=== PATIENT | female | born 1955 | race Hispanic/Latino ===

== ENCOUNTER 2023-07-10 10:11 | Emergency (ER) | payer OTHER, MEDICARE ==
[~2023-07-10] VITALS: Ht 170.2 cm; Wt 99.8 kg
[~2023-07-10 10:11] MED LIST: ESCI-8 PO; GABA-529 PO; HYDR100T42 PO; LEVO88CA4 PO; MELO-106 PO; METO-391 PO
[2023-07-10] MEDS ORDERED: LACTATED RINGERS 1000ML 1,000 ML IV ONE (11:00)
[2023-07-10] MEDS ORDERED: METOCLOPRAMIDE 10 MG/2 ML VIAL IVP ONE (11:00)
[2023-07-10] MEDS ORDERED: LACTULOSE 20 GM/30 ML UDCUP PO ONE (11:00)
[2023-07-10 11:21] LABS: BASOPHILS # (AUTO) 0.07 K/uL (0.00-0.20); BASOPHILS % (AUTO) 0.6 % (0.0-5.0); EOSINOPHILS # (AUTO) 0.03 K/uL (0.00-0.70); EOSINOPHILS % (AUTO) 0.2 % (0.0-8.0); HEMATOCRIT 39.4 % (36-48); IMMATURE GRANULOCYTE ABSOLUTE 0.06 K/uL (0-1); LYMPHOCYTES # (AUTO) 1.3 K/uL (1.0-4.8); LYMPHOCYTES % (AUTO) 10.3 % (21.0-51.0); MEAN CORPUSCULAR HGB CONC 32.5 g/dL (32.0-36.0); MEAN CORPUSCULAR VOLUME 92.3 fL (79-99); MONOCYTES # (AUTO) 0.5 K/uL (0.1-1.0); MONOCYTES % (AUTO) 4.1 % (3.0-13.0); NEUTROPHILS # (AUTO) 10.5 K/uL (1.8-7.7); NEUTROPHILS % (AUTO) 84.3 % (40.0-77.0); PLATELET COUNT (AUTO) 259 K/uL (130-400); RED BLOOD CELL COUNT(AUTO) 4.27 MIL/uL (4.00-5.50); RED CELL DISTRIBUTION WIDTH 13.3 % (11.0-15.5); WHITE BLOOD COUNT (AUTO) 12.4 K/uL (4.8-10.8)
[2023-07-10 11:38] LABS: ALBUMIN 3.4 g/dL (3.5-5.0); BILIRUBIN,TOTAL 0.6 mg/dL (0.2-1.0); CREATININE 0.8 mg/dL (0.5-1.5); POTASSIUM 3.6 mmol/L (3.5-5.1); TOTAL PROTEIN, SERUM 7.7 g/dL (6.0-8.3)
[2023-07-10] MEDS ORDERED: POLY17PO4 PO (13:05)
[2023-07-10 13:16] VITALS: BP 165/79; PULSE 74; RESP 18; O2SAT 97
== END 2023-07-10 13:21 | disposition home or self-care (01) ==
LOC: EDH 10:11
DX: R10.9 Unspecified abdominal pain (principal); K59.00 Constipation, unspecified; I10 Essential (primary) hypertension; E11.9 Type 2 diabetes mellitus without complications; E03.9 Hypothyroidism, unspecified; Z79.899 Other long term (current) drug therapy; Z98.890 Other specified postprocedural states
CPT/HCPCS: 99285; 96374; 96361; 82550; 84484; 80053; 83690; 85025; 36415; 74021; 93005; J7120; J2765; 96375

== ENCOUNTER 2024-03-09 14:45 | Inpatient (IN) | payer OTHER, MEDICARE ==
[2024-03-09] VITALS (27 sets, daily range): BP systolic 71–141; BP diastolic 27–85; PULSE 55–118; RESP 13–111; TEMP 98.2–98.3; O2SAT 93–96
[~2024-03-09] VITALS: Ht 167.6 cm; Wt 104.3 kg
[~2024-03-09 14:45] MED LIST changes: +POLY17PO4 PO
[2024-03-09] MEDS ORDERED: dilTIAZem 125MG+100 ML NS 125 ML IV PRN (15:00)
[2024-03-09] MEDS: metoPROLOL tartRATE 1 MG/ML 5ML VIAL IV ONE ×2 (15:11→15:13)
[2024-03-09 15:12] LABS: BASOPHILS # (AUTO) 0.05 K/uL (0.00-0.20); BASOPHILS % (AUTO) 0.5 % (0.0-5.0); EOSINOPHILS # (AUTO) 0.01 K/uL (0.00-0.70); EOSINOPHILS % (AUTO) 0.1 % (0.0-8.0); HEMATOCRIT 42.1 % (36-48); IMMATURE GRANULOCYTE ABSOLUTE 0.05 K/uL (0-1); LYMPHOCYTES # (AUTO) 2.3 K/uL (1.0-4.8); LYMPHOCYTES % (AUTO) 20.7 % (21.0-51.0); MEAN CORPUSCULAR HEMOGLOBIN 29.1 pg (27.0-33.0); MEAN CORPUSCULAR HGB CONC 32.5 g/dL (32.0-36.0); MEAN CORPUSCULAR VOLUME 89.4 fL (79-99); MONOCYTES # (AUTO) 0.4 K/uL (0.1-1.0); MONOCYTES % (AUTO) 3.8 % (3.0-13.0); NEUTROPHILS # (AUTO) 8.1 K/uL (1.8-7.7); NEUTROPHILS % (AUTO) 74.4 % (40.0-77.0); PLATELET COUNT (AUTO) 302 K/uL (130-400); RED BLOOD CELL COUNT(AUTO) 4.71 MIL/uL (4.00-5.50); RED CELL DISTRIBUTION WIDTH 13.4 % (11.0-15.5); WHITE BLOOD COUNT (AUTO) 10.9 K/uL (4.8-10.8)
[2024-03-09] MEDS: ENOXAPARIN SODIUM 100 MG/1 ML SQ ONE (15:15)
[2024-03-09 15:21] LABS: CREATININE 0.9 mg/dL (0.5-1.0); MAGNESIUM 2.1 mg/dL (1.80-2.40); POTASSIUM 3.5 mmol/L (3.5-5.1)
[2024-03-09] MEDS: dilTIAZem 25MG INJ IVP ONE (15:21)
[2024-03-09] MEDS: ENOXAPARIN SODIUM 120 MG/0.8ML SQ ONE (15:22)
[2024-03-09 15:24] LABS: INR 1.03 (0.85-1.15); PROTHROMBIN TIME 11.1 SEC (9.6-11.6)
[2024-03-09 15:25] LABS: PARTIAL THROMBOPLASTIN TIME 25.4 SEC (26.3-35.5)
[2024-03-09] MEDS ORDERED: ondanSETRON 4MG INJ IVP PRN (16:00)
[2024-03-09] MEDS ORDERED: acetaMINOPHEN 325 MG TAB PO PRN (16:00)
[2024-03-09] MEDS: metoPROLOL tartRATE 25 MG TAB ONE (16:18)
[2024-03-09] MEDS: metoPROLOL tartRATE 25 MG TAB PO SCH ×2 (16:23)
[2024-03-09 16:36] LABS: ADD UA MICROSCOPIC YES; APPEARANCE,URINE CLEAR (CLEAR); BILIRUBIN,URINE NEGATIVE (NEGATIVE); COLOR,URINE COLORLESS (YELLOW); GLUCOSE, URINE (UA) NEGATIVE (NEGATIVE); KETONES,URINE NEGATIVE (NEGATIVE); LEUKOCYTE ESTERASE ,URINE 75 Leu/uL (NEGATIVE); NITRATE,URINE NEGATIVE (NEGATIVE); OCCULT BLOOD,URINE NEGATIVE (NEGATIVE); PH,URINE 6.5 (5.0-8.0); PROTEIN,URINE NEGATIVE (NEGATIVE); UROBILINOGEN,URINE 0.2 mg/dL (0.2-1.0)
[2024-03-09 16:40] LABS: BACTERIA,URINE RARE /HPF (None Seen); RBC,URINE 0-1 /HPF (0-1)
[2024-03-09] MEDS: dilTIAZem 125MG+100 ML NS 125 ML IV ONE (17:14)
[2024-03-09] MEDS: dilTIAZem 125 MG/25 ML INJ 125 MG in 0.9%NACL 100ML 100 ML IV SCH (17:14)
[2024-03-10] VITALS (38 sets, daily range): BP systolic 96–169; BP diastolic 43–84; PULSE 46–116; RESP 9–84; TEMP 97.7–98.2; O2SAT 93–96
[2024-03-10 03:42] LABS: BASOPHILS # (AUTO) 0.08 K/uL (0.00-0.20); BASOPHILS % (AUTO) 0.8 % (0.0-5.0); EOSINOPHILS # (AUTO) 0.05 K/uL (0.00-0.70); EOSINOPHILS % (AUTO) 0.5 % (0.0-8.0); HEMATOCRIT 41.3 % (36-48); IMMATURE GRANULOCYTE ABSOLUTE 0.03 K/uL (0-1); LYMPHOCYTES # (AUTO) 4.1 K/uL (1.0-4.8); LYMPHOCYTES % (AUTO) 39.7 % (21.0-51.0); MEAN CORPUSCULAR HGB CONC 31.7 g/dL (32.0-36.0); MEAN CORPUSCULAR VOLUME 91.6 fL (79-99); MONOCYTES # (AUTO) 0.6 K/uL (0.1-1.0); MONOCYTES % (AUTO) 5.3 % (3.0-13.0); NEUTROPHILS # (AUTO) 5.5 K/uL (1.8-7.7); NEUTROPHILS % (AUTO) 53.4 % (40.0-77.0); PLATELET COUNT (AUTO) 300 K/uL (130-400); RED BLOOD CELL COUNT(AUTO) 4.51 MIL/uL (4.00-5.50); RED CELL DISTRIBUTION WIDTH 13.6 % (11.0-15.5); WHITE BLOOD COUNT (AUTO) 10.4 K/uL (4.8-10.8)
[2024-03-10 04:09] LABS: ALBUMIN 3.1 g/dL (3.5-5.0); BILIRUBIN,TOTAL 0.4 mg/dL (0.2-1.0); CREATININE 0.9 mg/dL (0.5-1.0); MAGNESIUM 2.3 mg/dL (1.80-2.40); TOTAL PROTEIN, SERUM 7.6 g/dL (6.0-8.3)
[2024-03-10 04:27] LABS: HEMOGLOBIN A1C 5.6 % (4.0-6.0)
[2024-03-10] MEDS: ENOXAPARIN SODIUM 30 MG/0.3 ML SQ SCH (09:01)
[2024-03-10] MEDS ORDERED: METH4TAB15 PO (09:17)
[2024-03-10] MEDS ORDERED: GLUC-172 PO (09:17)
[2024-03-10] MEDS ORDERED: CHOL125C7 PO (09:17)
[2024-03-10] MEDS ORDERED: ESCI20TA38 PO (09:17)
[2024-03-10] MEDS ORDERED: [UNRECOGNIZED DRUG - CODE] PO (09:17)
[2024-03-10] MEDS ORDERED: LEVO100C4 PO (09:17)
[2024-03-10] MEDS ORDERED: MELA1TAB17 PO (09:17)
[2024-03-10] MEDS ORDERED: GABA-529 PO (09:17)
[2024-03-10] MEDS ORDERED: CELE200 PO (09:17)
[2024-03-10] MEDS ORDERED: HYDR100T42 PO (09:17)
[2024-03-10] MEDS ORDERED: ACET-2521 PO (09:17)
[2024-03-10] MEDS: ENOXAPARIN SODIUM 120 MG/0.8ML SQ SCH (18:25)
[2024-03-10] MEDS: PYRIDOXINE HCL PO SCH (21:00)
[2024-03-10] MEDS: HYDROXYCHLOROQUINE SULFATE 100 MG PO SCH (21:00)
[2024-03-10] MEDS: MELATONIN PO SCH (21:00)
[2024-03-10] MEDS: CeleCOXib 200 MG CAP PO SCH (21:01)
[2024-03-11] VITALS (8 sets, daily range): BP systolic 117–142; BP diastolic 50–69; PULSE 50–69; RESP 18; TEMP 98–98.6; O2SAT 95–96
[2024-03-11 04:30] LABS: HEMATOCRIT 39.4 % (36-48); MEAN CORPUSCULAR HEMOGLOBIN 28.9 pg (27.0-33.0); MEAN CORPUSCULAR HGB CONC 31.7 g/dL (32.0-36.0); MEAN CORPUSCULAR VOLUME 91.2 fL (79-99); RED BLOOD CELL COUNT(AUTO) 4.32 MIL/uL (4.00-5.50); RED CELL DISTRIBUTION WIDTH 13.6 % (11.0-15.5); WHITE BLOOD COUNT (AUTO) 8.7 K/uL (4.8-10.8)
[2024-03-11 04:52] LABS: CREATININE 1.1 mg/dL (0.5-1.0); MAGNESIUM 2.2 mg/dL (1.80-2.40); POTASSIUM 3.9 mmol/L (3.5-5.1)
[2024-03-11] MEDS: levoTHYROxine 100 MCG TABLET PO SCH (05:54)
[2024-03-11] MEDS: cefTRIAXone 1G VIAL IVPB SCH (12:39)
[2024-03-11] MEDS: APIXaban 5 MG TABLET PO SCH (12:40)
[2024-03-11] MEDS: GABApentin 100 MG CAPSULE PO SCH (12:40)
[2024-03-11] MEDS: acetaMINOPHEN 325 MG TAB PO SCH (12:40)
[2024-03-11] MEDS: GLUCOSAMINE PO SCH (13:00)
[2024-03-11] MEDS: Escitalopram Oxalate 20 MG PO SCH (13:00)
[2024-03-11] MEDS: D3 PO SCH (13:00)
[2024-03-11] MEDS: BOSWELLIA SERRA PO SCH (13:00)
[2024-03-11] MEDS: CYANOCOBALAMIN 3000 MCG PO SCH (13:00)
[2024-03-11] MEDS: REGADENOSON 0.4 MG/5 ML PF SYG IVP SCH (15:15)
[2024-03-12 01:44] VITALS: BP 148/75; PULSE 76; RESP 18; TEMP 98.4
[2024-03-12 03:55] LABS: HEMATOCRIT 38.5 % (36-48); MEAN CORPUSCULAR HEMOGLOBIN 28.9 pg (27.0-33.0); MEAN CORPUSCULAR HGB CONC 32.2 g/dL (32.0-36.0); MEAN CORPUSCULAR VOLUME 89.7 fL (79-99); RED BLOOD CELL COUNT(AUTO) 4.29 MIL/uL (4.00-5.50); RED CELL DISTRIBUTION WIDTH 13.6 % (11.0-15.5); WHITE BLOOD COUNT (AUTO) 7.8 K/uL (4.8-10.8)
[2024-03-12 04:06] LABS: POTASSIUM 4.3 mmol/L (3.5-5.1)
[2024-03-12 05:32] VITALS: BP_SYST 122; BP_SYST 150; BP_DIAS 64; BP_DIAS 74; PULSE 68; PULSE 71; RESP 18; TEMP 98.8
[2024-03-12 07:00] VITALS: O2SAT 96
[2024-03-12 08:26] VITALS: BP 127/68; PULSE 69; RESP 16; TEMP 97.7
[2024-03-12] MEDS ORDERED: DILT30TA3 PO (08:56)
[2024-03-12] MEDS ORDERED: FLEC150T2 PO (08:56)
[2024-03-12 12:34] VITALS: BP 110/63; PULSE 59; RESP 16; TEMP 98.1
== END 2024-03-12 13:47 | disposition home or self-care (01) | DRG 309 ==
LOC: EDH 14:45 → EDHIP 15:33 → UNDOADMIN 15:53 → EDHIP 15:53 → 2CV 18:02 → EDHIP 18:02 → 2CV 03-10 14:35 → 2BH 03-10 14:35 → 2DH 03-11 00:09
PROVIDERS: ADMIT Internal Medicine Infectious Disease; ATTEND Internal Medicine Infectious Disease
DX: I48.0 Paroxysmal atrial fibrillation (principal); N39.0 Urinary tract infection, site not specified; I10 Essential (primary) hypertension; F32.A Depression, unspecified; E66.9 Obesity, unspecified; E11.9 Type 2 diabetes mellitus without complications; I25.10 Atherosclerotic heart disease of native coronary artery without angina pectoris; E78.00 Pure hypercholesterolemia, unspecified; E03.9 Hypothyroidism, unspecified; Z68.37 Body mass index [BMI] 37.0-37.9, adult; Z79.899 Other long term (current) drug therapy; Z83.3 Family history of diabetes mellitus; M06.8A Other specified rheumatoid arthritis, other specified site
CPT/HCPCS: 36415; 71045; 78452; 80048; 80053; 81001; 83036; 83735; 84484; 85025; 85027; 85610; 85730; 87086; 93005; 93017; 93306; A9500; G0378; J0696; J1650; J2785; J3490; A4600

== ENCOUNTER 2024-08-19 21:43 | Inpatient (IN) | payer OTHER, MEDICARE ==
[~2024-08-19] VITALS: Ht 167.6 cm; Wt 108.9 kg
[~2024-08-19 21:43] MED LIST changes: +ACET-2521 PO; +CELE200 PO; +CHOL125C7 PO; +DILT30TA3 PO; -ESCI-8 PO; +ESCI20TA38 PO; +FLEC150T2 PO; +GLUC-172 PO; +LEVO100C4 PO; -LEVO88CA4 PO; +MELA1TAB17 PO; -MELO-106 PO; +METH4TAB15 PO; -METO-391 PO; -POLY17PO4 PO; +[UNRECOGNIZED DRUG - CODE] PO
[2024-08-19 23:58] LABS: BASOPHILS # (AUTO) 0.06 K/uL (0.00-0.20); BASOPHILS % (AUTO) 0.7 % (0.0-5.0); EOSINOPHILS % (AUTO) 2.4 % (0.0-8.0); HEMATOCRIT 35.7 % (36-48); IMMATURE GRANULOCYTE ABSOLUTE 0.02 K/uL (0-1); LYMPHOCYTES # (AUTO) 3.2 K/uL (1.0-4.8); MEAN CORPUSCULAR HEMOGLOBIN 29.5 pg (27.0-33.0); MEAN CORPUSCULAR HGB CONC 32.2 g/dL (32.0-36.0); MEAN CORPUSCULAR VOLUME 91.5 fL (79-99); MONOCYTES # (AUTO) 0.5 K/uL (0.1-1.0); MONOCYTES % (AUTO) 5.5 % (3.0-13.0); NEUTROPHILS # (AUTO) 4.3 K/uL (1.8-7.7); NEUTROPHILS % (AUTO) 52.2 % (40.0-77.0); PLATELET COUNT (AUTO) 227 K/uL (130-400); RED CELL DISTRIBUTION WIDTH 13.2 % (11.0-15.5); WHITE BLOOD COUNT (AUTO) 8.2 K/uL (4.8-10.8)
--- NOTE | 2024-08-20 00:05 | ERN ---
ED Note History of Present Illness Stated Complaint: A FIB AN HOUR AGO Chief Complaint: Palpitations Time Seen by MD: 23:07 Dictation: This is a 69-year-old female who presented to the emergency room with complaints of increased palpitations an hour prior to the presentation. She stated that they would not stop and she felt sick and hence came into the ER for further evaluation She had some chest discomfort but no real chest pain. No syncope diaphoresis. Temperature 98.4 pulse 124 respirations 20 blood pressure 148/91 with a pulse oximetry of 94% on room air Her chronic medical problems include rheumatoid arthritis, hypertension, hypothyroidism and history of AFib. Allergies: Coded Allergies: No Known Allergies (Unverified Allergy, Unknown, 04/26/22) Home Meds Active Scripts Flecainide Acetate (Flecainide Acetate) 150 Mg Tablet, 150 MG PO ONCE for atrial fibrillation MDD 300 mg, #30 TAB Take 2 tablets 30 minutes after taking Diltiazem. Prov:SALLIE THOMAS 03/12/24 Diltiazem HCl (Diltiazem HCl) 30 Mg Tablet, 30 MG PO ONCE, #30 TAB Take Flecainide 300 mg 30 minutes after taking Diltiazem. Prov:SALLIE THOMAS 03/12/24 Reported Medications Methylprednisolone (Methylprednisolone) 4 Mg Tab.ds.pk, 4 MG PO AD 03/10/24 Glucosamine/D3/Boswellia Tatiana (Osteo Bi-Flex Caplet) 1,500 Mg-400 Unit-100 Mg Tablet, 1 EACH PO DAILY, TAB 03/10/24 Acetaminophen (Arthritis Pain Relief) 650 Mg Tablet.er, 650 MG PO DAILY, TAB 03/10/24 Escitalopram Oxalate (Escitalopram Oxalate) 20 Mg Tablet, 20 MG PO DAILY, TAB 03/10/24 Levothyroxine Sodium (Levothyroxine) 100 Mcg Capsule, 100 MCG PO ACBKFST, CAP 03/10/24 Gabapentin (Gabapentin) 100 Mg Capsule, 100 MG PO DAILY, CAP 03/10/24 Cyanocobalamin (Vitamin B-12) (Vitamin B-12) 3,000 Mcg Capsule, 3000 MCG PO DAILY, CAP 03/10/24 Celecoxib (Celebrex 200Mg Cap) 200 Mg Cap, 200 MG PO BID, CAP 03/10/24 Melatonin/Pyridoxine HCl (B6) (Melatonin 5 mg Tablet) 5 Mg-10 Mg Tablet, 1 EACH PO HS, TAB 03/10/24 Hydroxychloroquine Sulfate (Hydroxychloroquine Sulfate) 100 Mg Tablet, 100 MG PO BID, TAB 03/10/24 Cholecalciferol (Vitamin D3) (D3-5000) 125 Mcg (5000 Unit) Capsule, 125 MCG PO DAILY, CAP 03/10/24 Past Medical History Past Medical History: A-Fib, Hypothyroid Additional Past Medical Hx: THYROID, OA, HEART MURMER Surgical History: Unknown Social History: Negative History: Not Applicable RN Note Reviewed/Agreed w/PFSH: Yes Review of System Dictation Constitutional: Negative for fever,chills, and weight loss Eyes: Negative for injury, pain,redness, and discharge ENT: Negative for injury,pain or swelling Cardiovascular: Positive for chest pain, palpitations, and edema Respiratory: Negative for shortness of breath, cough, and wheezing, Abdomen/GI: Negative for abdominal pain, nausea, vomiting, diarrhea, and constipation Back: Negative for injury and pain : Negative for injury, bleeding and discharge MS/Extremity: Negative for injury and deformity Skin: Negative for rash, and discoloration Neuro: Negative for headache, weakness, numbness, tingling, and seizure Psych: Negative for suicide ideation, homicidal ideation, and hallucinations Initial Vital Sign VS Vital Signs Date Time Temp Pulse Resp B/P (MAP) Pulse Ox O2 Delivery O2 Flow Rate FiO2 08/19/24 22:47 98.4 124 20 148/91 94 Room Air 08/20/24 00:00 0 21 Physical Exam Dictation General: awake, alert, NAD obese female Head/Face: Normocephalic, atraumatic Eyes: PERRL, EOMI, vision at baseline ENT: oral cavity clear, TMs clear, no signs of infection Neck: Trachea midline, supple, no nuchal rigidity Cardiovascular: Irregular, No MRGs, no JVD Respiratory: Decreased breath sounds with occasional crackles at the bases Abdomen: Soft, non-tender, non-distended, normal bowel sounds, no guarding or rebound. Skin: Warm, dry, normal turgor, no rash MS/Extremity: Pulses equal, no cyanosis, neurovascular intact, FROM Neuro: COAx4, GCS 15, strength 5/5, CN 2-12 intact, normal cerebellar exam, normal gait, Psych: Normal behavior, mood, and affect normal Extremities-1+ edema without any palpable cords, Homans sign is negative Results (Laboratory/Radiology) Laboratory/Radiology Labs Reviewed?: Yes Ultrasound Comment: Echocardiogram 02/2024 Conclusion LVEF is 55-60%. Mild to moderate concentric left ventricular hypertrophy. The left atrium is mildly dilated. The aortic root is normal in size. There is no pericardial effusion. DICTATED BY: ARCHANA COULTER MD DATE: 03/10/24 0913 ELECTRONICALLY SIGNED BY: ARCHANA COULTER MD DATE: 03/10/24 165 ED Course ED Course Vital Signs Date Time Temp Pulse Resp B/P (MAP) Pulse Ox O2 Delivery O2 Flow Rate FiO2 08/20/24 03:09 98.1 56 16 166/72 99 Room Air* 0 21 We will perform diagnostic labs, advanced imaging and administer medications according to the patient's complaint. Once the results are available, will review and personally interpreted the labs to rule out any acute life- threatening emergency the trach require immediate intervention and treatment. I will then re-evaluate the patient after treatment and diagnostic exams have return to determine whether the patient requires any further testing, can safely be discharged home or need further admission to hospital for additional treatment and evaluation. Labs reviewed CBC shows a hemoglobin of 11.5 BNP 7 is decent BNP is 57 chest x- ray shows mild cardiomegaly with prominence of the vasculature Patient was tachycardic in atrial fibrillation with rapid ventricular response at initial presentation however spontaneously [place] down to 50s even before any medications can be given. I had a long discussion with the patient about tachy-trenton syndrome and need for a re-evaluation by research and development tester for possibly needing a pacemaker in readjustment of her medications. She is agreeable 12:55 a.m.-patient accepted by Willie Thompson, mid-level provider for hospitalist group for admission and further management HEART Score Response (Comments) Value History: Moderate suspicion (+1) 1 EKG: Repolarization changes 1 Age: > 65yrs (+2) 2 Risk Factors: 1-2 risk factors (+1) 1 Initial Troponin: Normal limit (0) 0 HEART Score Risk: Mod Risk for MACE (4-6) Total 5 Medical Decision Making MDM MDM: Differential diagnosis: Unstable angina, new coronary event, hyperthyroidism, inadequate medications, tachy-trenton syndrome Rationale: Tests considered and ordered secondary to shared decision making include: labs, ECG and radiology Previous outside records reviewed: Old ER visits. Risk of complication and/or morbidity or mortality of patient management: None Medications-Per medication reconciliation Need for hospitalization: Patient does meet criteria for hospitalization. Need for emergency major/minor surgery: No There are no social concerns with this patient. Prescription drug management Prescriptions will include symptomatic care Patient's prior external medical records from other ER visits were reviewed by me as indicated. Prior testing and results from previous visits were reviewed. Prior tests were taken into account with medical decision making and resource utilization, independent historian/historians were used to obtain complete medical history. I independently interpreted the test that were performed, results were reviewed by me and considered findings on radiology if ordered. Medical management and examination interpretation discussions were had by me with other qualified healthcare professionals as indicated for the patient's care. Problem List Problem List: (1) Atrial fibrillation with rapid ventricular response (2) Sinus trenton-tachy syndrome Critical Care Note Critical Time: 45 minutes Comment(s) Life-threatening illness; severe tachy-trenton syndrome Risk of morbidity mortality-high Complexity of medical decision making-high (X) high probability of sudden clinically significant deterioration in the patient's condition required the highest level of my preparedness to intervene urgently. I provided critical care services requiring my direct and personal management as noted below; (x) chart data review (x) reviewing nurse's notes and/charts (x) documentation time (x) consultation collaboration on findings and therapy options (x) medication orders and management (x) re-evaluations (x) care, transfer of care, and discharge plans (x) ordering and interpreting studies (x) ordering and reviewing labs (x) obtaining necessary history from family, EMS, longterm, private MD, surrogate decision makers because patient was unable to give history due to limitations in the mental status (x) aggregate critical care time was ( 45 ) minutes. This includes only time during which I was engaged in work directly related to the patient's care as described above whether at the bedside or elsewhere in the ER while the patient was critical. My time did not include minutes spent treating any other patients simultaneously or on activities that did not directly contribute to the patient's treatment. It did not include time spent performing other reported procedures or services of residents if any. Kendra Vazquez MDFCCP DX & DISP Disposition: Inpatient Decision to Admit Time: 00:15 Departure Impression: Primary Impression: Atrial fibrillation with rapid ventricular response Additional Impression: Sinus bradycardia-tachycardia syndrome Condition: Stable Additional Instructions: Patient was informed of all the diagnostic labs and procedures conducted in the emergency room today and demonstrated understanding of the results. I person ally reviewed and interpreted all the diagnostic exams performed in the ER today. The patient will be admitted to the hospital for further treatment and evaluation. Disposition-admit to facility Condition-stable/guarded Course-uncertain at this time Pain status-decreased Assessment-exam unchanged Admission Certification- I certify that the patients status is appropriate and is based on my best clinical judgment and the patient's condition as documented in the medical records Referrals: SIRENA CAMPOS (PCP) KENDRA VAZQUEZ MD Aug 20, 2024 00:05
[2024-08-20 00:11] LABS: CREATININE 0.7 mg/dL (0.5-1.0); POTASSIUM 3.5 mmol/L (3.5-5.1)
[2024-08-20] MEDS: 0.9% NACL 500ML IV.SOLN 500 ML IV ONE (00:19)
[2024-08-20 00:28] LABS: B-TYPE NATRIURETIC PEPTIDE 57 pg/mL (0-100)
[2024-08-20 00:31] LABS: APPEARANCE,URINE CLEAR (CLEAR); BILIRUBIN,URINE NEGATIVE (NEGATIVE); COLOR,URINE LIGHT-YELLOW (YELLOW); GLUCOSE, URINE (UA) NEGATIVE (NEGATIVE); KETONES,URINE NEGATIVE (NEGATIVE); LEUKOCYTE ESTERASE ,URINE NEGATIVE Leu/uL (NEGATIVE); NITRATE,URINE NEGATIVE (NEGATIVE); OCCULT BLOOD,URINE NEGATIVE (NEGATIVE); PH,URINE 5.5 (5.0-8.0); PROTEIN,URINE NEGATIVE (NEGATIVE); UROBILINOGEN,URINE 0.2 mg/dL (0.2-1.0)
[2024-08-20 01:00] LABS: ADD UA MICROSCOPIC NO
--- NOTE | 2024-08-20 01:09 | HP ---
History of Present Illness Reason for Visit: Palpitations History of Present Illness Ms. Omer is a 69-year-old female that was seen and examined today on 08/20/2024. Patient is a good historian of personal health. Patient states that she came to the emergency department with a chief complaint of palpitations. Onset was 10 years ago. Location is midsternal. Duration is on and off. Most recent episode happened on 08/19/2024 at 8:00 p.m.. There was no alleviating factors. There was no aggravating factors. Patient denies any associated chest pain or shortness and breath. Today in the emergency department urinalysis unremarkable, CBC unremarkable, chemistry unremarkable, chest x-ray is pending radiology interpretation. According to emergency room physician patient arrived with a rhythm of AFib with RVR in the rate of the 130s which spontaneously converted to bradycardia. Patient continued to complain of palpitations. Emergency room physician noa mmended that patient be admitted so she could be evaluated by Cardiology for tachy-adia syndrome and possible ppm placement. Past Medical History ADDITIONAL PAST MEDICAL HISTORY: [Denies] SOCIAL HISTORY: [Negative for smoking, alcohol use, drug use. Patient lives alone. Patient has good access to health care through her insurance. Patient is a retired certified addiction counselor. Patient is typically independent of all her ADLs. Patient denies difficulty paying her bills.] SURGICAL HISTORY: [Teeth extraction, blepharoplasty] Review of Systems General: No Fever, No Chills, No Night Sweats, No Fatigue, No Malaise, No Appetite, No Other HEENT: No Head Aches, No Visual Changes, No Eye Pain, No Ear Pain, No Dysphasia, No Sinus Congestion, No Post Nasal Drip, No Sore Throat, No Other Pulmonary: No Dyspnea, No Cough, No Pleuritic Chest Pain, No Other Cardiovascular: Palpitations; No: Chest Pain, Orthopnea, Paroxysmal Noc. Dyspnea, Edema, Lt Headedness, Other Gastrointestinal: No: Nausea, Vomiting, Abdominal Pain, Diarrhea, Constipation, Melena, Hematochezia, Other Genitourinary: No Dysuria, No Frequency, No Incontinence, No Hematuria, No Retention, No Other Musculoskeletal: No: other, neck pain, shoulder pain, arm pain, back pain, hand pain, leg pain, foot pain Skin: No Urticaria, No Rash, No Other Neurological: No: Weakness, Numbness, Incoordination, Change in speech, Confusion, Seizures, Other Allergies: Coded Allergies: No Known Allergies (Unverified Allergy, Unknown, 04/26/22) Scheduled Acetaminophen (Arthritis Pain Relief), 650 MG PO DAILY, (Reported) Celecoxib (Celebrex 200Mg Cap), 200 MG PO BID, (Reported) Cholecalciferol (Vitamin D3) (D3-5000), 125 MCG PO DAILY, (Reported) Cyanocobalamin (Vitamin B-12) (Vitamin B-12), 3,000 MCG PO DAILY, (Reported) Diltiazem HCl (Diltiazem HCl), 30 MG PO ONCE Escitalopram Oxalate (Escitalopram Oxalate), 20 MG PO DAILY, (Reported) Flecainide Acetate (Flecainide Acetate), 150 MG PO ONCE Gabapentin (Gabapentin), 100 MG PO DAILY, (Reported) Glucosamine/D3/Boswellia Tatiana (Osteo Bi-Flex Caplet), 1 EACH PO DAILY, (Reported) Hydroxychloroquine Sulfate (Hydroxychloroquine Sulfate), 100 MG PO BID, (Reporte d) Levothyroxine Sodium (Levothyroxine), 100 MCG PO ACBKFST, (Reported) Melatonin/Pyridoxine HCl (B6) (Melatonin 5 mg Tablet), 1 EACH PO HS, (Reported) Methylprednisolone (Methylprednisolone), 4 MG PO AD, (Reported) Exam Vital Signs Vital Signs Date Time Temp Pulse Resp B/P (MAP) Pulse Ox O2 Delivery O2 Flow Rate FiO2 08/20/24 00:00 59 18 129/62 98 Room Air* 0 21 08/19/24 22:47 98.4 General Appearance: Alert, Oriented X3, Cooperative, No acute distress HEENT: Atraumatic, EOMI Respiratory: Clear to auscultation, Normal air movement, NL respiratory effort Cardiovascular: Normal S1, Normal S2, Other (Bradycardia) Abdominal: Normal bowel sounds, Soft, No tenderness Extremities: No clubbing, No cyanosis, No edema Skin: No significant lesion Neuro: Normal speech, Strength at 5/5 X4 ext, Sensation intact, Cranial nerves 3-12 NL Psych/Mental Status: Mental status NL, Mood NL, Thoughts/Content NL Assessment/Plan ASSESSMENT: [ Tachy-adia syndrome, POA AFib RVR episode, POA Sinus bradycardia episode, POA Hypothyroidism Hypertension] PLAN: [ Admit patient to pccu as inpatient status. Place patient on telemetry monitoring. Patient will be followed by cardiology service, Dr. Cagle Further recommendations per Cardiology Check TSH in a.m. Consider resuming home medications once they are reconciled For now, Hydralazine 10 mg IV every 4 hours for systolic blood pressure greater than 160 mmHg GI prophylaxis, famotidine DVT prophylaxis, Lovenox] ADVANCED CARE PLANNING 1. Which of the following were discussed? Hospice Care - Yes Therapeutic options - Yes Advance Directives - Yes - patient states she does not have any advance directives in place at this time, however her daughter Teri Scott can make decisions for her if she becomes unable. Other discussions - patient wishes to remain a full code at this time 2. Discussed with who? Patient 3. Voluntary nature of this service was explained to the patient? Yes 4. Amount of time spent - __ 16 minutes 5. Reviewed by Physician? (if this service was performed by NPP) Yes This document was generated in part using voice recognition software, occasional wrong word or sound alike substitutions may have occurred due to the inherent limitations of voice recognition software. Read the chart carefully and recognize using context, where the substitutions have occurred. Although every effort was made to edit the content, fire prevention engineer and typing errors may occur ATTESTATION BY PHYSICIAN I have seen and examined the patient. I reviewed the documentation, medical decision making, and treatment plan as noted by the mid-level provider above. I agree with the findings and plan of care. HARSHA BUTLER NARROW GAUGE ENGINEER Aug 20, 2024 01:09
[2024-08-20] MEDS ORDERED: morPHINE 2 MG SYG IVP PRN (01:30)
[2024-08-20] MEDS ORDERED: hydrALAZine 20MG/ML VIAL IV PRN (01:30)
[2024-08-20] MEDS ORDERED: acetaMINOPHEN 325 MG TAB PO PRN (01:30)
[2024-08-20] MEDS ORDERED: ondanSETRON 4MG INJ IV PRN (01:30)
[2024-08-20] MEDS: metoPROLOL tartRATE 1 MG/ML 5ML VIAL IV ONE (03:06)
[2024-08-20] MEDS: ENOXAPARIN SODIUM 120 MG/0.8ML SQ ONE (03:07)
[2024-08-20 03:09] VITALS: BP 166/72; PULSE 56; RESP 16; TEMP 98.1; O2SAT 99
--- NOTE | 2024-08-20 03:11 | NUR ---
patient signed out AMA. Patient did not want to stay because she does not want to miss her neurology appointment. Patient reported having to wait a year to get in and does not want to miss it but will return to hospital if she feels ill again. patient verbalized understanding of leaving against medical advice
--- NOTE | 2024-08-20 03:14 | NUR ---
Willie Thompson DO[employer] AND [employer]OOK made aware patient will be leaving AMA
[2024-08-20] MEDS ORDERED: FAMOTIDINE 20MG TAB PO SCH (09:00)
--- NOTE | 2024-08-20 10:08 | HMCIMG ---
PORTABLE CHEST RADIOGRAPH INDICATION: palpitations COMPARISON: 03/09/2024 FINDINGS: Heart size is normal. The pulmonary vascularity and zhang appear normal. No abnormal pulmonary parenchymal opacity or consolidation identified. No significant pleural effusion noted. No pneumothorax detected. IMPRESSION: No radiographic evidence for any acute cardiopulmonary process.
[2024-08-21] MEDS ORDERED: ENOXAPARIN SODIUM 40 MG/0.4 ML SYRINGE SQ SCH (09:00)
== END 2024-08-20 03:08 | disposition left against medical advice (07) | DRG 310 ==
LOC: EDH 21:43 → EDHIP 08-20 01:01
PROVIDERS: ADMIT Internal Medicine; ATTEND Internal Medicine
DX: I49.5 Sick sinus syndrome (principal); I48.91 Unspecified atrial fibrillation; R00.1 Bradycardia, unspecified; I10 Essential (primary) hypertension; E03.9 Hypothyroidism, unspecified; Z53.29 Procedure and treatment not carried out because of patient's decision for other reasons; Z79.899 Other long term (current) drug therapy
CPT/HCPCS: 36415; 71045; 80048; 81003; 82550; 83880; 84484; 85025; 99285; G0378; J7040